=== PATIENT | female | born 1965 | race Caucasian/White ===

== ENCOUNTER 2016-05-25 14:32 | Outpatient (CLI) | payer OTHER | END 2016-05-25 14:33 | disposition home or self-care (01) | DX: Z12.31 Encounter for screening mammogram for malignant neoplasm of breast (principal) ==

== ENCOUNTER 2016-06-22 07:18 | Day surgery (SDC) | payer OTHER ==
[2016-06-22] MEDS ORDERED: LACTATED RINGERS 1,000 ML IV ONE (07:40)
[2016-06-22] MEDS ORDERED: PROPOFOL 200 MG/20 ML VIAL IVP ONE (09:30)
[2016-06-22] MEDS ORDERED: LIDOCAINE-MPF 2% 5 ML VIAL IM ONE (09:30)
[2016-06-22] MEDS ORDERED: MIDAZOLAM 2 MG/2 ML VIAL IVP ONE (09:30)
[2016-06-22] MEDS ORDERED: fentaNYL 100 MCG/2 ML VIAL IVP ONE (09:30)
== END 2016-06-22 07:19 | disposition home or self-care (01) ==
PROC: 0DJD8ZZ Inspection of Lower Intestinal Tract, Via Natural or Artificial Opening Endoscopic (ICD-10-PCS; principal; 2016-06-22 08:30)
DX: Z12.11 Encounter for screening for malignant neoplasm of colon (principal); Z82.3 Family history of stroke; Z82.49 Family history of ischemic heart disease and other diseases of the circulatory system; Z88.0 Allergy status to penicillin; Z88.5 Allergy status to narcotic agent; K21.9 Gastro-esophageal reflux disease without esophagitis
CPT/HCPCS: 45378; J7120

== ENCOUNTER 2017-06-01 17:50 | Emergency (ER) | payer OTHER ==
[2017-06-01 18:20] LABS: BASOPHILS # (AUTO) 0.1 10^3/uL (0.0-0.1); BASOPHILS % (AUTO) 0.9 %; EOSINOPHILS # (AUTO) 0.1 10^3/uL (0.0-0.7); EOSINOPHILS % (AUTO) 0.9 %; HGB - HEMOGLOBIN 12.9 g/dL (12.0-16.0); LYMPHOCYTES # (AUTO) 2.3 10^3/uL (1.5-3.5); LYMPHOCYTES % (AUTO) 36.7 %; MEAN PLATELET VOLUME 7.5 fL (7.9-10.8); MONOCYTES # (AUTO) 0.4 10^3/uL (0.0-1.0); MONOCYTES % (AUTO) 5.9 %; NEUTROPHILS # (AUTO) 3.6 10^3/uL (1.5-6.6); NEUTROPHILS % (AUTO) 55.6 %; PLT - PLATELET COUNT 190 10^3/uL (130-450); RED BLOOD COUNT 4.45 10^6/uL (4.20-5.40); RED CELL DISTRIBUTION WIDTH 12.9 % (12.0-15.0); WHITE BLOOD COUNT 6.4 x10^3/uL (4.8-10.8)
[2017-06-01 18:32] LABS: ALBUMIN/GLOBULIN RATIO 2.2 (1.0-2.2); BILIRUBIN,TOTAL 0.9 mg/dL (0.2-1.0); CALCIUM 9.7 mg/dL (8.5-10.3); CREATININE 0.6 mg/dL (0.4-1.0); TOTAL PROTEIN 7.3 g/dL (6.7-8.2)
--- NOTE | 2017-06-01 18:58 | ED Physician Documentation ---
PD HPI ABD PAIN - Stated complaint Stated Complaint: RT SIDE PX - Chief complaint Chief Complaint: Abd Pain - History obtained from History obtained from: Patient - History of Present Illness Timing - onset: How many hours ago (1), Today Timing - duration: Hours (1) Timing - details: Abrupt onset, Still present (very severe) Quality: Aching, Sharp, Pain Location: RLQ Radiation: Right flank Improved by: No: Laying still, Position Worsened by: No: Moving, Breathing, Position, Palpation Associated symptoms: Nausea, Vomiting. No: Fever, Diarrhea, Constipation, Melena, Dysuria, Vaginal bleeding, Vaginal dc Similar symptoms before: Has not had sx before Recently seen: Not recently seen Review of Systems Constitutional: denies: Fever, Chills Nose: denies: Rhinorrhea / runny nose, Congestion Throat: denies: Sore throat Cardiac: denies: Chest pain / pressure, Palpitations Respiratory: denies: Dyspnea, Cough GI: reports: Abdominal Pain, Nausea. denies: Constipation, Diarrhea Skin: denies: Rash, Lesions Musculoskeletal: denies: Neck pain, Extremity pain PD PAST MEDICAL HISTORY - Past Medical History Cardiovascular: None Respiratory: None Endocrine/Autoimmune: None GI: None : None HEENT: Other Psych: None Musculoskeletal: None Derm: None - Past Surgical History /FORESTRY CONTRACTOR: Other HEENT: Cataracts - Present Medications Home Medications: Ambulatory Orders Medication Instructions Recorded Confirmed Beta-Carotene 75 mg PO DAILY 06/21/16 06/21/16 Calcium Carbonate 600 mg PO DAILY 06/21/16 06/21/16 Cinnamon Bark [Cinnamon] 1,000 mg PO DAILY 06/21/16 06/21/16 Multivits Min/Iron/FA/Herb#186 1 each PO DAILY 06/21/16 06/21/16 [Hair, Skin and Nails Caplet] - Allergies Allergies/Adverse Reactions: Allergies Allergy/AdvReac Type Severity Reaction Status Date / Time Penicillins Allergy Hives Verified 06/22/16 08:22 ketamine AdvReac Hallucinati Verified 06/22/16 07:55 ons "narcotics" AdvReac Nausea Uncoded 06/22/16 07:55 - Social History Does the pt smoke?: No Smoking Status: Never smoker PD ED PE NORMAL - Vitals Vital signs reviewed: Yes - General General: Alert and oriented X 3, Well developed/nourished, Other (marked discomfort and pain, doubled over and has emesis bag with dry heaving. ) - HEENT HEENT: Pharynx benign - Neck Neck: Supple, no meningeal sign, No adenopathy - Cardiac Cardiac: RRR, No murmur - Respiratory Respiratory: Clear bilaterally - Abdomen Abdomen: Normal bowel sounds, Soft, Non distended, No organomegaly, Other ( tender RLQ and there is moderate right CVA tenderness. ) - Female Female : Deferred - Rectal Rectal: Deferred - Back Back: No spinal TTP - Derm Derm: Normal color, Warm and dry, No rash - Extremities Extremities: No deformity, No tenderness to palpate - Neuro Neuro: Alert and oriented X 3, No motor deficit, Normal speech Results - Vitals Vitals: Vital Signs - 24 hr 06/01/17 06/01/17 06/01/17 17:57 19:53 21:22 Temperature 36.8 C Heart Rate 105 H 75 66 Respiratory 18 16 16 Rate Blood Pressure 155/82 H 101/62 O2 Saturation 97 97 97 06/01/17 22:22 Temperature Heart Rate 68 Respiratory 17 Rate Blood Pressure 105/54 L O2 Saturation 97 Oxygen O2 Source Room air - Labs Labs: Laboratory Tests 06/01/17 06/01/17 06/01/17 18:15 18:15 20:05 WBC 6.4 RBC 4.45 Hgb 12.9 Hct 39.1 MCV 88.0 MCH 29.0 MCHC 33.0 RDW 12.9 Plt Count 190 MPV 7.5 L Neut # 3.6 Lymph # 2.3 [place] # 0.4 Eos # 0.1 Baso # 0.1 Absolute Nucleated RBC 0.00 Nucleated RBC % 0.0 Sodium 137 Potassium 3.7 Chloride 102 Carbon Dioxide 25 Anion Gap 10.0 BUN 12 Creatinine 0.6 Estimated GFR (MDRD) 105 Glucose 99 Calcium 9.7 Total Bilirubin 0.9 AST 21 ALT 17 Alkaline Phosphatase 57 Total Protein 7.3 Albumin 5.0 Globulin 2.3 Albumin/Globulin Ratio 2.2 Lipase 17 L Urine Color YELLOW Urine Clarity CLEAR Urine pH 6.5 Ur Specific [place] 1.010 Urine Protein NEGATIVE Urine Glucose (UA) NEGATIVE Urine Ketones NEGATIVE Urine Occult Blood TRACE-LYSE Urine Nitrite NEGATIVE Urine Bilirubin NEGATIVE Urine Urobilinogen 0.2 (NORMAL) Ur Leukocyte Esterase NEGATIVE Ur Microscopic Review NOT INDICATED Urine Culture Comments NOT INDICATED Urine HCG, Qual NEGATIVE - Rads (name of study) KUB CT Radiology: Prelim report reviewed (renal stones, no ureteral stones. No other acute process. ) PD MEDICAL DECISION MAKING - ED course Complexity details: re-evaluated patient (much improved with meds. Her pain was completely gone by time of the CT. Her symptoms were very c/w kidney stone and she has some blood in urine. CT showed maybe some right hydronephrosis to my eye of it. There was some time delay from meds to getting CT, so consider that she passed the stone prior to study. No other obvious explanation. ), considered differential, d/w patient Departure - Departure Disposition: 01 Home, Self Care Clinical Impression: Abdominal pain Qualifiers: Abdominal location: right lower quadrant Qualified Code(s): R10.31 - Right lower quadrant pain Condition: Stable Record reviewed to determine appropriate education?: Yes Instructions: ED Stone Renal W Colic Follow-Up: Sherice Hatch DO [Primary Care Provider] - Comments: Your pain was very suggestive of a kidney stone. There was some slight swelling of the right kidney and trace of blood in your urine that would be suggestive of a stone that had recently passed. The CT scan did not show any acute ureter stones. You do have a couple in the kidneys on both sides. No other abnormalities found on your CT scan to suggest alternate cause. At this point I presume you had a kidney stone that passed by the time of the CT scan. That is good in that there should not be any significant further pain. Sometimes there is some mild aching on and off for a day or so. Tylenol or ibuprofen if needed for pain. Return if worsened symptoms again. Discharge Date/Time: 06/01/17 22:23
[2017-06-01] MEDS ORDERED: KETOROLAC 30 MG/ML VIAL IVP STA (18:59)
[2017-06-01] MEDS ORDERED: ONDANSETRON 4 MG/2 ML VIAL IVP STA (18:59)
[2017-06-01] MEDS ORDERED: LIDOCAINE-MPF 2% 4 ML in SODIUM CHLORIDE 0.9% 50 ML IV STA (18:59)
[2017-06-01] MEDS ORDERED: SODIUM CHLORIDE 0.9% 1,000 ML IV ONE (18:59)
[2017-06-01] MEDS ORDERED: METOCLOPRAMIDE 10 MG/2 ML VIAL IVP STA (19:01)
[2017-06-01 20:15] LABS: BILIRUBIN,URINE NEGATIVE (NEGATIVE); GLUCOSE, URINE (UA) NEGATIVE (NEGATIVE); KETONES,URINE (UA) NEGATIVE (NEGATIVE); LEUKOCYTE ESTERASE, URINE NEGATIVE (NEGATIVE); NITRITE,URINE NEGATIVE (NEGATIVE); OCCULT BLOOD,URINE TRACE-LYSE (NEGATIVE); PH,URINE 6.5 PH (5.0-7.5); PROTEIN,URINE NEGATIVE (NEGATIVE); UROBILINOGEN,URINE 0.2 (NORMAL) E.U./dL (NORMAL)
[2017-06-01 20:18] LABS: CLARITY,URINE CLEAR (CLEAR)
[2017-06-01 20:19] LABS: HCG UR QUAL NEGATIVE
--- NOTE | 2017-06-01 21:21 | CT Preliminary Report ---
Exam: CT ABDOMEN/PELVIS W/O IMPRESSION: 1. Bilateral nonobstructing kidney stones. 2. No evidence of acute appendicitis. [facility] SITE ID: [id number]
--- NOTE | 2017-06-01 21:21 | CT Report ---
EXAM: CT ABDOMEN AND PELVIS EXAM DATE: 06/01/2017 08:53 PM. CLINICAL HISTORY: Right sided pain abruptly today. COMPARISONS: None. TECHNIQUE: Routine helical CT imaging was performed through the abdomen and pelvis. IV contrast: No. Enteric contrast: No. Reconstructions: Coronal and sagittal. In accordance with CT protocol optimization, one or more of the following dose reduction techniques w ere utilized for this exam: automated exposure control, adjustment of mA and/or KV based on patient s ize, or use of iterative reconstructive technique. FINDINGS: Lung Bases: Unremarkable. Liver: The liver is normal in size and contour. Gallbladder/Bile Ducts: Unremarkable. Spleen: Normal. Pancreas: Normal. Adrenal Glands: Normal. Kidneys: There are bilateral nonobstructing kidney stones. Results 3 mm stone in the lower pole of th e right kidney. There is a 4 mm stone and a 1 mm stone in the lower left kidney. No ureter stone or h ydronephrosis. Peritoneal Cavity/Bowel: Normal. No free fluid, free air or adenopathy. No masses or acute inflammato ry process. The appendix is well visualized and normal. Pelvic Organs: There is scattered stool in the colon. The uterus is grossly normal in size. Urinary b ladder is unremarkable. Vasculature: The abdominal aorta is normal in caliber. Bones: No significant abnormality. Other: None. IMPRESSION: 1. Bilateral nonobstructing kidney stones. 2. No evidence of acute appendicitis. [facility] Referring Provider Line: [phone] SITE ID: [id number]
[2017-06-01 22:23] VITALS: BP 105/54
== END 2017-06-01 22:23 | disposition home or self-care (01) ==
LOC: ED 17:50
DX: R10.31 Right lower quadrant pain (principal)
CPT/HCPCS: 36415; 74176; 80053; 81003; 81025; 83690; 85025; 96361; 96374; 96375; 99283; 99284; J2765; J7040; 81001; 87086

== ENCOUNTER 2019-04-14 17:49 | Outpatient (CLI) | payer OTHER | END 2019-04-14 17:50 | disposition critical access hospital (66) | LOC: EMS 17:49 | PROVIDERS: ATTEND Surgery | DX: S06.9X9A Unspecified intracranial injury with loss of consciousness of unspecified duration, initial encounter (principal); M54.5 Low back pain; R20.2 Paresthesia of skin; W01.198A Fall on same level from slipping, tripping and stumbling with subsequent striking against other object, initial encounter; Y93.02 Activity, running; Y92.009 Unspecified place in unspecified non-institutional (private) residence as the place of occurrence of the external cause | CPT/HCPCS: A0425; A0429 ==

== ENCOUNTER 2019-04-14 18:11 | Emergency (ER) | payer OTHER ==
[2019-04-14] MEDS ORDERED: SODIUM CHLORIDE 0.9% 1,000 ML IV ONE (18:19)
[2019-04-14] MEDS ORDERED: KETOROLAC 30 MG/ML VIAL IVP STA ×2 (18:19→21:17)
--- NOTE | 2019-04-14 18:21 | ED Physician Documentation ---
PD HPI Fall - Stated complaint Stated Complaint: GLF - History obtained from History obtained from: Patient (She was running and tripped and fell in the mud, falling backwards hitting her head. No reported loss of consciousness and then but she had multiple episodes of syncope after that. She complains of severe back and left hip pain.) Review of Systems Ten Systems: 10 systems reviewed and negative Constitutional: denies: Fever, Chills Cardiac: denies: Chest pain / pressure, Palpitations Respiratory: denies: Dyspnea, Cough GI: denies: Abdominal Pain, Nausea, Vomiting, Diarrhea PD PAST MEDICAL HISTORY - Past Medical History Cardiovascular: None Respiratory: None Endocrine/Autoimmune: None GI: None : None HEENT: Other Psych: None Musculoskeletal: None Derm: None - Past Surgical History /MANAGER SALES: Other HEENT: Cataracts - Present Medications Home Medications: Ambulatory Orders Medication Instructions Recorded Confirmed Beta-Carotene 75 mg PO DAILY 06/21/16 06/21/16 Calcium Carbonate [Calcium] 600 mg PO DAILY 06/21/16 06/21/16 Cinnamon Bark [Cinnamon] 1,000 mg PO DAILY 06/21/16 06/21/16 Multivit-Min/Iron/Folic/Dvi519 1 each PO DAILY 06/21/16 06/21/16 [Hair, Skin and Nails Caplet] Lidocaine Patch 5% [Lidoderm Patch] 1 patch TOP DAILY PRN #10 patch 04/14/19 Methocarbamol [Robaxin-750] 750 mg PO QID PRN #20 tablet 04/14/19 - Allergies Allergies/Adverse Reactions: Allergies Allergy/AdvReac Type Severity Reaction Status Date / Time Penicillins Allergy Hives Verified 04/14/19 18:30 ketamine AdvReac Hallucinati Verified 04/14/19 18:30 ons "narcotics" AdvReac Nausea Uncoded 04/14/19 18:30 - Social History Does the pt smoke?: No Smoking Status: Never smoker PD ED PE NORMAL - Vitals Vital signs reviewed: Yes - General General: Alert and oriented X 3, No acute distress - HEENT HEENT: Other (Somewhat dilated pupils, she has difficulty abducting the right eye and has diplopia on rightward gaze which is new for her.) - Neck Neck: No bony TTP, Other (Maintained in a c-collar pending imaging given potential distracting injury.) - Cardiac Cardiac: RRR, No murmur - Respiratory Respiratory: No respiratory distress, Clear bilaterally - Abdomen Abdomen: Non tender - Extremities Extremities: Other (Right tender to the lumbar spine, also the left hip. There is no deformity of the left hip, no shortening or rotation of the left leg but she is unable to move it all due to pain. Even movement of the right leg hurts the left hip.) - Neuro Neuro: Alert and oriented X 3, No motor deficit, No sensory deficit, Normal speech - Psych Psych: Normal mood, Normal affect Results - Vitals Vitals: Vital Signs - 24 hr 04/14/19 04/14/19 04/14/19 18:27 19:30 20:00 Temperature 36.8 C Heart Rate 86 87 83 Respiratory 18 17 14 Rate Blood Pressure 147/94 H 116/70 113/65 O2 Saturation 99 100 99 04/14/19 04/14/19 04/14/19 20:30 21:00 21:55 Temperature 36.9 C Heart Rate 73 76 68 Respiratory 17 14 12 Rate Blood Pressure 108/69 107/69 107/67 O2 Saturation 100 97 98 Oxygen O2 Source Room air - EKG (time done) 1915 Rate: Rate (enter#) (80) Rhythm: NSR [place]: Normal Intervals: Normal SC QRS: Normal Ischemia: Normal ST segments Computer interpretation: Agree with computer - Labs Labs: Laboratory Tests 04/14/19 04/14/19 18:22 19:33 WBC 6.4 RBC 4.41 Hgb 13.2 Hct 40.8 MCV 92.5 MCH 29.9 MCHC 32.4 RDW 12.6 Plt Count 191 MPV 9.4 Neut # (Auto) 3.2 Lymph # (Auto) 2.7 [place] # (Auto) 0.4 Eos # (Auto) 0.1 Baso # (Auto) 0.1 Absolute Nucleated RBC 0.00 Nucleated RBC % 0.0 Sodium 136 Potassium 3.8 Chloride 102 Carbon Dioxide 26 Anion Gap 8.0 BUN 14 Creatinine 0.7 Estimated GFR (MDRD) 87 L Glucose 127 H Calcium 8.6 Total Bilirubin 0.7 AST 20 ALT 21 Alkaline Phosphatase 48 Total Protein 6.2 L Albumin 4.0 Globulin 2.2 Albumin/Globulin Ratio 1.8 Lipase 40 Ethyl Alcohol < 5.0 - Rads (name of study) CT angiography of the head and neck, CT of the cervical spine, CT of the chest, CT of the abdomen and pelvis through the left hip Radiology: EMP read contemporaneously (Some spondylosis of the spine, no acute trauma.) PD MEDICAL DECISION MAKING - ED course ED course: 53-year-old woman running and fell, complaining mostly of left hip and back pain. On examination she did have an abducting palsy of the right eye initially, but on reexamination after CT this had resolved. Given the diplopia though vertebral dissection was entertained, and angiography studies were done and negative along with the other CTs. She had a lot of trouble becoming able to walk prior to discharge, the examination really was not consistent with a hip fracture though. She had no pain of the hip. All the pain was really in the buttock, she was able to internally and externally rotate the hip and lift the leg off the bed okay. On reexamination, The patient has equal and normal Achilles and patellar reflexes bilaterally. Normal sensation in all areas of the legs. Patient denies saddle anesthesia. Normal strength in flexion-extension at the ankles, knees, and flexion of the hips. Departure - Departure Disposition: 01 Home, Self Care Clinical Impression: Incongruous diplopia Concussion Qualifiers: Encounter type: initial encounter Loss of consciousness presence/duration: without LOC Qualified Code(s): S06.0X0A - Concussion without loss of consciousness, initial encounter Injury of head and neck Qualifiers: Encounter type: initial encounter Qualified Code(s): S09.90XA - Unspecified injury of head, initial encounter; S19.9XXA - Unspecified injury of neck, initial encounter Fall Qualifiers: Encounter type: initial encounter Qualified Code(s): W19.XXXA - Unspecified fall, initial encounter Injury of back Qualifiers: Encounter type: initial encounter Qualified Code(s): S39.92XA - Unspecified injury of lower back, initial encounter Low back pain Qualifiers: Chronicity: acute Back pain laterality: left Sciatica presence: without sciatica Qualified Code(s): M54.5 - Low back pain Condition: Good Record reviewed to determine appropriate education?: Yes Instructions: ED Spasm Back No Trauma Prescriptions: Lidocaine Patch 5% [Lidoderm Patch] 1 patch TOP DAILY PRN #10 patch PRN Reason: pain Methocarbamol [Robaxin-750] 750 mg PO QID PRN #20 tablet PRN Reason: Spasms Comments: Call your doctor to arrange a follow-up appointment, make the next available appointment. In the interim, return anytime if worse or if new symptoms develop. Discharge Date/Time: 04/14/19 21:59
[2019-04-14 18:26] LABS: BASOPHILS # (AUTO) 0.1 10^3/uL (0.0-0.1); BASOPHILS % (AUTO) 0.9 %; EOSINOPHILS # (AUTO) 0.1 10^3/uL (0.0-0.7); EOSINOPHILS % (AUTO) 0.8 %; HGB - HEMOGLOBIN 13.2 g/dL (12.0-16.0); LYMPHOCYTES # (AUTO) 2.7 10^3/uL (1.5-3.5); LYMPHOCYTES % (AUTO) 41.6 %; MEAN CORPUSCULAR HEMOGLOBIN 29.9 pg (27.0-31.0); MEAN CORPUSCULAR HGB CONC 32.4 g/dL (32.0-36.0); MEAN CORPUSCULAR VOLUME 92.5 fL (81.0-99.0); MEAN PLATELET VOLUME 9.4 fL (7.9-10.8); MONOCYTES # (AUTO) 0.4 10^3/uL (0.0-1.0); NEUTROPHILS # (AUTO) 3.2 10^3/uL (1.5-6.6); NEUTROPHILS % (AUTO) 49.9 %; PLT - PLATELET COUNT 191 10^3/uL (130-450); RED BLOOD COUNT 4.41 10^6/uL (4.20-5.40); RED CELL DISTRIBUTION WIDTH 12.6 % (12.0-15.0); WHITE BLOOD COUNT 6.4 x10^3/uL (4.8-10.8)
[2019-04-14] MEDS ORDERED: IOVERSOL 320 100 ML VIAL IVP ONE ×3 (18:42→19:33)
[2019-04-14] MEDS ORDERED: methocarbamoL 500 MG TABLET PO STA (19:22)
--- NOTE | 2019-04-14 19:27 | CT Report ---
Reason: neck pain fall Procedure Date: 04/14/2019 Accession Number: [id number] / [id number] Procedure: CT - CERVICAL SPINE WO CPT Code: Final Report FULL RESULT: EXAM: CT CERVICAL SPINE WITHOUT CONTRAST DATE: 04/14/2019 06:52 PM. HISTORY: Neck pain fall. COMPARISONS: None. TECHNIQUE: Thin-section axial images were acquired of the cervical spine without contrast. Post-processing: Coronal and sagittal reformats. Other: None. In accordance with CT protocol optimization, one or more of the following dose reduction techniques were utilized for this exam: automated exposure control, adjustment of mA and/or KV based on patient size, or use of iterative reconstructive technique. FINDINGS: Alignment: No scoliosis or spondylolisthesis. Bones: No fracture or bone lesion. Interspace Levels/Facets: C1-C2: Unremarkable. C2-C3: Unremarkable. C3-C4: Unremarkable. C4-C5: Unremarkable. C5-C6: Mild disk height loss. Bilateral uncovertebral hypertrophic changes. Mild to moderate bilateral neural foraminal stenosis. C6-C7: Mild disk height loss. Bilateral uncovertebral hypertrophic changes. Mild to moderate bilateral neural foraminal stenosis. C7-T1: Unremarkable. Musculature: Normal. No fatty atrophy. Other: The paravertebral and prevertebral soft tissues are unremarkable. 1 cm left thyroid lobe nodule. The lung apices are clear. IMPRESSION: No fracture or subluxation. [facility]
--- NOTE | 2019-04-14 19:30 | CT Report ---
Reason: trauma Procedure Date: 04/14/2019 Accession Number: [id number] / [id number] Procedure: CT - Abdomen/Pelvis W CPT Code: Final Report FULL RESULT: EXAM: CT ABDOMEN AND PELVIS EXAM DATE: 04/14/2019 07:01 PM. CLINICAL HISTORY: Trauma. Fall onto back. COMPARISONS: ABDOMEN/PELVIS W/ 04/14/2019 7:04 PM. TECHNIQUE: Routine helical CT imaging was performed through the abdomen and pelvis. IV contrast: 40 cc of OPTIRAY 320. Enteric contrast: No. Reconstructions: Coronal and sagittal. In accordance with CT protocol optimization, one or more of the following dose reduction techniques were utilized for this exam: automated exposure control, adjustment of mA and/or KV based on patient size, or use of iterative reconstructive technique. FINDINGS: Lung Bases: Unremarkable. Liver: Normal. No masses. Gallbladder/Bile Ducts: Unremarkable. Spleen: Normal. Pancreas: Normal. Adrenal Glands: Normal. Kidneys: Normal. No masses or hydronephrosis. Peritoneal Cavity/Bowel: Normal. No free fluid, free air or adenopathy. No masses or acute inflammatory process. The appendix is well visualized and normal. Pelvic Organs: Normal. The bladder and visualized pelvic organs are within normal limits. Vasculature: No aneurysms or other significant abnormality. Bones: No significant abnormality. Other: None. IMPRESSION: Normal abdomen and pelvis CT. [facility]
--- NOTE | 2019-04-14 19:33 | CT Report ---
Reason: trauma Procedure Date: 04/14/2019 Accession Number: [id number] / [id number] Procedure: CT - CHEST W CPT Code: Final Report FULL RESULT: EXAM: CT CHEST EXAM DATE: 04/14/2019 07:20 PM. CLINICAL HISTORY: Back pain post fall. COMPARISONS: None available. TECHNIQUE: Routine helical CT imaging was performed through the chest. IV contrast: 120 cc of Optiray 320. Reconstructions: Coronal and sagittal. In accordance with CT protocol optimization, one or more of the following dose reduction techniques were utilized for this exam: automated exposure control, adjustment of mA and/or KV based on patient size, or use of iterative reconstructive technique. FINDINGS: Lungs/Pleura: Biapical scarring is noted. Mild atelectatic changes seen at the right base. Mediastinum: Normal. No adenopathy or masses. The heart and great vessels are normal. Bones: Unremarkable. Visualized Abdomen: Unremarkable. Other: None. IMPRESSION: Grossly unremarkable exam. [facility]
--- NOTE | 2019-04-14 19:41 | CT Report ---
Reason: back pain fall Procedure Date: 04/14/2019 Accession Number: [id number] / [id number] Procedure: CT - LUMBAR SPINE WO CPT Code: Final Report FULL RESULT: EXAM: CT LUMBAR SPINE WITHOUT CONTRAST EXAM DATE: 04/14/2019 07:28 PM. CLINICAL HISTORY: Back pain fall. COMPARISONS: ABDOMEN/PELVIS W/ 04/14/2019 7:01 PM ABDOMEN/PELVIS W/O 06/01/2017 8:47 PM. TECHNIQUE: Thin-section axial images were acquired of the lumbar spine from T12 to S1 without contrast. Post-processing: Coronal and sagittal reformats. Other: None. In accordance with CT protocol optimization, one or more of the following dose reduction techniques were utilized for this exam: automated exposure control, adjustment of mA and/or KV based on patient size, or use of iterative reconstructive technique. FINDINGS: Alignment: No scoliosis or spondylolisthesis. Bones: Five [id number] lumbar vertebral bodies are present. No fractures. Some minor endplate spurring compatible with age. Disk Levels/Facets: T12-L1: Unremarkable. L1-L2: Unremarkable. L2-L3: Unremarkable. L3-L4: Unremarkable. L4-L5: Unremarkable. L5-S1: Unremarkable. Musculature: Normal. No fatty atrophy. Other: The visualized retroperitoneum is unremarkable. See separate report CT of the abdomen and pelvis. IMPRESSION: Normal lumbar spine CT. [facility]
--- NOTE | 2019-04-14 19:49 | CT Report ---
Reason: back pain fall Procedure Date: 04/14/2019 Accession Number: [id number] / [id number] Procedure: CT - THORACIC SPINE WO CPT Code: Final Report FULL RESULT: EXAM: CT THORACIC SPINE WITHOUT CONTRAST EXAM DATE: 04/14/2019 07:33 PM. CLINICAL HISTORY: Back pain. Fall. COMPARISONS: ABDOMEN/PELVIS W/ 04/14/2019 7:01 PM CHEST W04/14/2019 7:04 PM. TECHNIQUE: Thin-section axial images were acquired of the thoracic spine from C7 to L1 without contrast. Post-processing: Coronal and sagittal reformats. Other: None. In accordance with CT protocol optimization, one or more of the following dose reduction techniques were utilized for this exam: automated exposure control, adjustment of mA and/or KV based on patient size, or use of iterative reconstructive technique. FINDINGS: Alignment: No scoliosis or spondylolisthesis. Bones: No fracture or bone lesion. Disk Levels/Facets: Disk spaces preserved. Mild widespread endplate spurring. Facets normally aligned. Other: See CT chest report. IMPRESSION: Mild spondylosis, with no acute thoracic spine abnormalities. [facility]
[2019-04-14 20:06] LABS: ALBUMIN/GLOBULIN RATIO 1.8 (1.0-2.2); ALKALINE PHOSPHATASE 48 IU/L (42-121); ALT ALANINE AMINOTRANSFERASE 21 IU/L (10-60); AST ASPARTATE AMINOTRANSFERASE 20 IU/L (10-42); BILIRUBIN,TOTAL 0.7 mg/dL (0.2-1.0); BUN - BLOOD UREA NITROGEN 14 mg/dL (6-20); CALCIUM 8.6 mg/dL (8.5-10.3); CARBON DIOXIDE - CO2 26 mmol/L (21-32); CHLORIDE 102 mmol/L (101-111); CREATININE 0.7 mg/dL (0.4-1.0); GFR - MDRD 87 (>89); GLUCOSE 127 mg/dL (70-100); LIPASE 40 U/L (22-51); SODIUM 136 mmol/L (135-145); TOTAL PROTEIN 6.2 g/dL (6.7-8.2)
--- NOTE | 2019-04-14 20:11 | CT Report ---
Reason: dipolpia, trauma Procedure Date: 04/14/2019 Accession Number: [id number] / [id number] Procedure: CT - ANGIO NECK W CPT Code: Final Report FULL RESULT: EXAM: CT ANGIOGRAM HEAD AND NECK. CT SCAN HEAD WITHOUT AND WITH CONTRAST. EXAM DATE: 04/14/2019 06:52 PM. CLINICAL HISTORY: 53-year-old presenting after a fall onto back with the diplopia and headache. Evaluate for intracranial pathology or vascular pathology. COMPARISON: CT cervical spine 04/14/2019. TECHNIQUE: Routine axial helical CTA imaging was performed from the aortic arch through the [place] of [place]. Routine axial CT imaging of the head was performed prior to and following contrast administration. Reconstructions: Routine multiplanar 3D MIP reconstructions. IV contrast: 80 mL Optiray 320. NASCET Criteria are used for stenosis measurements. In accordance with CT protocol optimization, one or more of the following dose reduction techniques were utilized for this exam: automated exposure control, adjustment of mA and/or KV based on patient size, or use of iterative reconstructive technique. FINDINGS: CT SCAN HEAD: Parenchyma: No intraparenchymal hemorrhage. No evidence of mass, midline shift, or CT findings of acute infarction. Garcia-white differentiation is distinct. Extra-axial Spaces: Normal for age. No subdural or epidural collections identified. Ventricles: Normal in size and position. Sinuses and Orbits: Changes of bilateral lens replacement. Visualized paranasal sinuses, mastoid air cells, and middle ear cavities are clear. Bones: No evidence of fracture or calvarial defect. Other: Vascular calcifications of the cavernous ICA segments. CT ANGIOGRAM HEAD AND NECK: The aortic arch appears normal. Normal three vessel takeoff. The visualized subclavian arteries appear normal. RIGHT: Common Carotid Artery: Patent without significant stenosis. Carotid Bulb: There is minimal atherosclerotic plaque at the carotid bifurcation. Stenosis at the bifurcation by NASCET criteria: No significant stenosis. Internal Carotid Artery: The cervical ICA is patent with no high-grade stenosis or definite dissection seen. Minimal vascular calcifications and cavernous ICA segment with no high-grade stenosis seen. No evidence of aneurysm along the intracranial ICA. External Carotid Artery: Unremarkable. 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 No definite high-grade stenosis. No evidence of dissection. No aneurysm. Anterior Cerebral Artery: Patent without significant stenosis, aneurysm, or vascular malformation. Middle Cerebral Artery: Patent without significant stenosis, aneurysm, or vascular malformation. Posterior Cerebral Artery: Patent without significant stenosis, aneurysm, or vascular malformation. Posterior Communicating Artery: Patent. No aneurysm. LEFT: Common Carotid Artery: Patent without significant stenosis. Carotid Bulb: There is minimal atherosclerotic plaque at the carotid bifurcation. Stenosis at the bifurcation by NASCET criteria: No significant stenosis. Internal Carotid Artery: The cervical ICA is patent with no high-grade stenosis or definite dissection seen. Vascular calcifications of the cavernous ICA segment with no high-grade stenosis seen. No evidence of aneurysm along the intracranial ICA. External Carotid Artery: Unremarkable. Vertebral Artery: Patent without significant stenosis. No evidence of dissection. No aneurysm. Anterior Cerebral Artery: Patent without significant stenosis, aneurysm, or vascular malformation. Middle Cerebral Artery: Patent without significant stenosis, aneurysm, or vascular malformation. Posterior Cerebral Artery: Patent without significant stenosis, aneurysm, or vascular malformation. Posterior Communicating Artery: Not definitively seen. No aneurysm. CENTRAL: Anterior Communicating Artery: Patent. No aneurysm. Basilar Artery: Patent without significant stenosis. No aneurysm. DURAL VENOUS SINUSES AND MAJOR CENTRAL VEINS: Patent. OTHER: The visualized pharynx and larynx appear normal. Punctate calcification seen within the right parotid gland measuring up to 3 mm (series 2, image 361). Left thyroid lobe nodule seen measuring up to 11 mm (series 2, image 212). No cervical lymphadenopathy. No necrotic lymph nodes. Soft tissues of the neck appear normal. Pleural-parenchymal scarring of the visualized lung apices. No acute fracture or traumatic subluxation. Multilevel degenerative changes. No suspicious osseous lesion seen. POST-CONTRAST HEAD: No abnormal enhancement. IMPRESSION: CT SCAN HEAD: 1. No definite acute intracranial pathology seen; specifically, no acute infarct, acute intracranial hemorrhage, mass, hydrocephalus, or midline shift. No abnormal postcontrast enhancement. CT ANGIOGRAM NECK: 1. Motion artifact technically limits evaluation. 2. When accounting for technical limitations, the vasculature of the neck demonstrates no definite dissection or high-grade stenosis. CT ANGIOGRAM HEAD: 1. No large vessel occlusion. 2. No aneurysm. No significant stenosis. RADIA
[2019-04-14] MEDS ORDERED: LORazepam 2 MG/ML VIAL IVP STA (20:56)
[2019-04-14] MEDS ORDERED: LIDOCAINE PATCH 5% TOP STA (21:17)
[2019-04-14] MEDS ORDERED: KETOROLAC 30 MG/ML VIAL ONE (21:21)
[2019-04-14 21:56] VITALS: BP 107/67
== END 2019-04-14 21:59 | disposition home or self-care (01) ==
LOC: ED 18:11
DX: H53.2 Diplopia (principal); S06.0X0A Concussion without loss of consciousness, initial encounter; S09.90XA Unspecified injury of head, initial encounter; S39.92XA Unspecified injury of lower back, initial encounter; M54.5 Low back pain; W01.0XXA Fall on same level from slipping, tripping and stumbling without subsequent striking against object, initial encounter; Y93.02 Activity, running; Y92.828 Other wilderness area as the place of occurrence of the external cause
CPT/HCPCS: 36415; 70496; 70498; 71260; 72125; 72128; 72131; 74177; 80053; 80320; 83690; 85025; 93005; 96361; 96374; 96376; 99283; 99284; A9270; J2060

== ENCOUNTER 2020-05-13 08:00 | Outpatient (CLI) | payer OTHER ==
[2020-05-13 18:04] LABS: BASOPHILS % (AUTO) 0.7 %; EOSINOPHILS % (AUTO) 0.7 %; HCT - HEMATOCRIT 40.1 % (37.0-47.0); LYMPHOCYTES # (AUTO) 2.2 10^3/uL (1.5-3.5); LYMPHOCYTES % (AUTO) 38.9 %; MEAN CORPUSCULAR HEMOGLOBIN 29.7 pg (27.0-31.0); MEAN CORPUSCULAR HGB CONC 32.4 g/dL (32.0-36.0); MEAN CORPUSCULAR VOLUME 91.6 fL (81.0-99.0); MONOCYTES # (AUTO) 0.3 10^3/uL (0.0-1.0); MONOCYTES % (AUTO) 5.7 %; NEUTROPHILS % (AUTO) 53.8 %; PLT - PLATELET COUNT 208 10^3/uL (130-450); RED BLOOD COUNT 4.38 10^6/uL (4.20-5.40); RED CELL DISTRIBUTION WIDTH 12.6 % (12.0-15.0); WHITE BLOOD COUNT 5.6 x10^3/uL (4.8-10.8)
[2020-05-13 18:31] LABS: ALBUMIN 4.8 g/dL (3.2-5.5); ALBUMIN/GLOBULIN RATIO 2.2 (1.0-2.2); ALKALINE PHOSPHATASE 54 IU/L (42-121); ALT ALANINE AMINOTRANSFERASE 17 IU/L (10-60); AST ASPARTATE AMINOTRANSFERASE 17 IU/L (10-42); BILIRUBIN,TOTAL 1.1 mg/dL (0.2-1.0); BUN - BLOOD UREA NITROGEN 18 mg/dL (6-20); CALCIUM 9.8 mg/dL (8.5-10.3); CARBON DIOXIDE - CO2 27 mmol/L (21-32); CHLORIDE 99 mmol/L (101-111); CHOLESTEROL 211 mg/dL; CREATININE 0.6 mg/dL (0.4-1.0); GFR - MDRD 104 (>89); GLUCOSE 94 mg/dL (70-100); HDL CHOLESTEROL 84 mg/dL; POTASSIUM 4.4 mmol/L (3.5-5.0); SODIUM 136 mmol/L (135-145); TRIGLYCERIDES 35 mg/dL
[2020-05-13 18:32] LABS: CHOL/HDL RATIO 2.5 (<4.4); THYROID STIMULATING HORMONE 1.68 uIU/mL (0.34-5.60)
== END 2020-05-13 23:59 | disposition home or self-care (01) ==
LOC: LAB.WCP 08:00
PROVIDERS: ATTEND Family Medicine
DX: Z00.00 Encounter for general adult medical examination without abnormal findings (principal); R94.5 Abnormal results of liver function studies; G43.909 Migraine, unspecified, not intractable, without status migrainosus; K21.9 Gastro-esophageal reflux disease without esophagitis; R07.89 Other chest pain; F41.0 Panic disorder [episodic paroxysmal anxiety]
CPT/HCPCS: 36415; 80053; 80061; 83721; 84443; 85025

== ENCOUNTER 2020-10-30 14:05 | Outpatient (CLI) | payer OTHER | END 2020-10-30 14:06 | disposition home or self-care (01) | LOC: COV 14:05 | PROVIDERS: ATTEND Family Medicine | DX: R05 Cough (principal); R06.02 Shortness of breath; M79.10 Myalgia, unspecified site; R53.83 Other fatigue; R68.83 Chills (without fever); Z20.822 Contact with and (suspected) exposure to COVID-19 ==

== ENCOUNTER 2021-01-31 07:14 | Outpatient (CLI) | payer BC ==
--- NOTE | 2021-01-31 08:17 | Ultrasound Report ---
PROCEDURE: Ext Limited Non Vascular INDICATIONS: SOFT TISSUES NEOPLASM OF LEFT LEG TECHNIQUE: Real-time scanning was performed of the left knee, with image documentation. COMPARISON: None. FINDINGS: Scanning is performed at the area of clinical concern involving the posterior medial left knee. At this site, there is a nonvascular cystic lesion that measures 5 x 1.3 x 4.4 cm. A mild degre e of internal echogenicity can be seen. 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 No abno rmal vascularity is seen. Reviewed by: Eagle Aldridge MD on 01/31/2021 7:15 AM [facility] Approved by: Eagle Aldridge MD on 01/31/2021 7:15 AM [facility] Station ID: [id number]
== END 2021-01-31 07:15 | disposition home or self-care (01) ==
LOC: DI 07:14
PROVIDERS: ATTEND Family Medicine
DX: M71.22 Synovial cyst of popliteal space [Baker], left knee (principal)

== ENCOUNTER 2021-02-09 13:36 | Outpatient (CLI) | payer BC ==
--- NOTE | 2021-02-10 14:09 | Mammography Report ---
BILATERAL DIGITAL SCREENING MAMMOGRAM 3D/2D: 02/09/2021 CLINICAL: Routine screening. Comparison is made to exam dated: 05/25/2016 mammogram - [facility]. There are sca ttered fibroglandular elements in both breasts. There is a new 0.7 cm oval equal density focal asymmetry in the right breast at 12 o'clock anterior d epth. There is a 0.5 cm oval equal density focal asymmetry in the left breast at 6 o'clock anterior depth. This is more prominent and increased in size. No other significant masses or calcifications are seen in either breast. IMPRESSION: INCOMPLETE: NEEDS ADDITIONAL IMAGING EVALUATION The new 0.7 cm oval equal density focal asymmetry in the right breast at 12 o'clock anterior depth re sembles a cyst or a lymph node and is indeterminate. Additional views with possible ultrasound are r ecommended. The 0.5 cm oval equal density focal asymmetry in the left breast at 6 o'clock anterior depth resemble s a cyst or a lymph node and is indeterminate. Additional views with possible ultrasound are recom mended. This exam was interpreted at Station ID: [id number]. NOTE: For mammograms, a report in lay terms will be sent to the patient. Approximately 15% of breast malignancies will not be visualized mammographically. In the management of a palpable breast mass, a negative mammogram must not discourage biopsy of a clinically suspicious lesion. Electronically Signed By: Roger Dillon M.D. aty/:02/09/2021 16:58:18 ACR BI-RADS Category 0: Incomplete 3340F PARENCHYMAL PATTERN: (A) - The breast(s) demonstrate(s) scattered fibroglandular densities. BI-RADS CATEGORY: (0) - 0 Mammo and [place] [id number] Immediate follow-up LATERALITY: (B)
== END 2021-02-09 13:37 | disposition home or self-care (01) ==
LOC: DI 13:36
DX: Z12.31 Encounter for screening mammogram for malignant neoplasm of breast (principal); R92.8 Other abnormal and inconclusive findings on diagnostic imaging of breast

== ENCOUNTER 2021-03-13 12:33 | Outpatient (CLI) | payer BC, OTHER ==
--- NOTE | 2021-03-16 15:48 | Mammography Report ---
BILATERAL DIGITAL DIAGNOSTIC MAMMOGRAM 3D/2D: 03/13/2021 CLINICAL: Patient returns today to evaluate a focal asymmetry in the right breast. Patient returns to day to evaluate a focal asymmetry in the left breast. Comparison is made to exams dated: 02/09/2021 mammogram and 05/25/2016 mammogram - [facility]. There are scattered fibroglandular elements in both breasts. There is a 0.8 cm x 0.5 cm oval asymmetry with a circumscribed margin in the right breast at 12 o'miguel ck anterior depth 2 cm from the nipple. There is a 0.5 cm x 0.7 cm oval asymmetry with a circumscribed margin in the left breast at 6 o'clock anterior depth 2 cm from the nipple. No other significant masses or calcifications are seen in either breast. IMPRESSION: INCOMPLETE: NEEDS ADDITIONAL IMAGING EVALUATION The 0.8 cm x 0.5 cm oval asymmetry in the right breast at 12 o'clock anterior depth is indeterminate. An ultrasound is recommended. The 0.5 cm x 0.7 cm oval asymmetry in the left breast at 6 o'clock anterior depth is indeterminate. An ultrasound is recommended. US will be performed and dictated separately. This exam was interpreted at Station ID: [id number]. NOTE: For mammograms, a report in lay terms will be sent to the patient. Approximately 15% of breast malignancies will not be visualized mammographically. In the management of a palpable breast mass, a negative mammogram must not discourage biopsy of a clinically suspicious lesion. Electronically Signed By: Kenneth Castañeda acr/:03/13/2021 13:35:58 ACR BI-RADS Category 0: Incomplete 3340F PARENCHYMAL PATTERN: (A) - The breast(s) demonstrate(s) scattered fibroglandular densities. BI-RADS CATEGORY: (0) - 0 Ultrasound [id number] Immediate follow-up LATERALITY: (B)
--- NOTE | 2021-03-16 15:48 | Ultrasound Report ---
LIMITED ULTRASOUND OF RIGHT BREAST: 03/13/2021 CLINICAL: Short term follow up for bilateral breasts. No prior exams were available for comparison. Color flow ultrasound of the right breast 12 o'clock region was performed. Garcia scale images of the real-time examination were reviewed. There is a benign 0.4 cm x 0.3 cm x 0.4 cm cyst in the right breast at 12 o'clock anterior depth 2 cm from the nipple. IMPRESSION: BENIGN There is no sonographic evidence of malignancy. The 0.4 cm x 0.3 cm x 0.4 cm cyst in the right breast is consistent with a simple cyst and is benign. Return to annual mammogram screening schedule is recommended. This exam was interpreted at Station ID: [id number]. Electronically Signed By: Kenneth mark/kassidy:03/13/2021 14:28:43 Ultrasound BI-RADS: 2 Benign BI-RADS CATEGORY: (2) - 2 Mammogram [id number] return to screening LATERALITY: (B)
--- NOTE | 2021-03-16 15:49 | Ultrasound Report ---
LIMITED ULTRASOUND OF LEFT BREAST: 03/13/2021 CLINICAL: Short term follow up for bilateral breasts. No prior exams were available for comparison. Color flow ultrasound of the left breast retroareolar was performed. Garcia scale images of the real- time examination were reviewed. There is a benign 0.8 cm x 0.3 cm x 0.5 cm cyst in the left breast at 6 o'clock anterior depth 2 cm f rom the nipple. IMPRESSION: BENIGN There is no sonographic evidence of malignancy. The 0.8 cm x 0.3 cm x 0.5 cm cyst in the left breast is consistent with a simple cyst and is benign. A 1 year screening mammogram is recommended. This exam was interpreted at Station ID: [id number]. Electronically Signed By: Kenneth Castañeda acr/kassidy:03/13/2021 14:30:21 Ultrasound BI-RADS: 2 Benign BI-RADS CATEGORY: (2) - 2 RECOMMENDATION: (ANNUAL) - Recommend routine annual screening mammography. [id number] 1 year screening LATERALITY: (B)
== END 2021-03-13 12:34 | disposition home or self-care (01) ==
LOC: DI 12:33
PROVIDERS: ATTEND Nurse Practitioner Family
DX: N60.02 Solitary cyst of left breast (principal); N60.01 Solitary cyst of right breast